=== PATIENT | female | born 1960 | race Caucasian/White ===

== ENCOUNTER 2024-05-19 09:25 | Emergency (ER) | payer MEDICAID, SELFPAY ==
[2024-05-19 09:26] VITALS: BMI 16.9
[2024-05-19 09:45] VITALS: BP 198/93; PULSE 105; RESP 22; TEMP 36.7; O2SAT 92; BMI 16.7
--- NOTE | 2024-05-19 09:54 | XR_ITS ---
Examination: PA lateral chest 2 views TECHNIQUE: Upright PA lateral chest 2 views Exam date and time: May 19, 2024 1006 hours Comparison January 15, 2020 INDICATIONS: Coughing fever beginning today FINDINGS: Significant hyperexpansion Minimal opacity on the lateral view in the lingular segment Normal heart size No pulmonary edema Accentuation bronchovascular markings Chronic osteoporotic wedging mid dorsal vertebral bodies with kyphosis deformity IMPRESSION: COPD with significant hyperexpansion Bronchitis pattern Scarring versus mild pneumonia in the lingular segment, clinical correlation advised
--- NOTE | 2024-05-19 10:04 | PD.EDSOB ---
ED SOB =RME/HPI General Chief Complaint: Shortness of Breath/Dyspnea Stated Complaint: DIFF. BREATHING SINCE LAST NIGHT Time Seen by Provider: 05/19/24 09:34 Source: patient Arrival date/time: 05/19/24 09:25 63-year-old female with a history of COPD, hypothyroidism presents to the emergency room with a chief complaint of difficulty breathing x 2 days Mode of arrival: ambulatory Limitations: no limitations Related Data Home Medications ?Medication ?Instructions ?Recorded ?Confirmed Levothyroxine * (SYNTHROID *) 25 mcg PO QDAY #0 tabs 10/31/14 meloxicam 15 mg tablet (Mobic) 15 mg PO HS #0 tabs 10/31/14 Losartan Potassium * (COZAAR *) 25 mg PO QDAY ##30 08/30/16 Previous Rx's ?Medication ?Instructions ?Recorded motrin 600mg 1 tab PO q6hprn pain #30 tabs 10/31/14 Allergies Allergy/AdvReac Type Severity Reaction Status Date / Time No Known Allergies Allergy Verified 05/19/24 09:28 Review of Systems Review of Systems Systems Reviewed: All systems reviewed, normal except as documented Constitutional Constitutional: Reports system reviewed and no additional complaints, except as documented, Denies fatigue, Denies fever(s), Denies headache(s) and Denies weakness Eyes Eyes: Reports system reviewed and no additional complaints, except as documented, Denies blurry vision and Denies change in vision ENT Ears, Nose, Mouth, and Throat: Reports system reviewed and no additional complaints, except as documented, Denies otalgia, Denies headache(s), Denies nasal congestion, Denies throat swelling and Denies vertigo Cardiovascular Cardiovascular: Reports system reviewed and no additional complaints, except as documented, Denies chest pain, Reports dyspnea and Denies dyspnea on exertion Respiratory Respiratory: Reports system reviewed and no additional complaints, except as documented, Reports chest congestion, Reports cough, Reports dyspnea, Denies dyspnea on exertion and Reports wheezing Gastrointestinal Gastrointestinal: Reports system reviewed and no additional complaints, except as documented, Denies abdominal pain, Denies cramping, Denies nausea and Denies vomiting Genitourinary Genitourinary: Reports system reviewed and no additional complaints, except as documented Musculoskeletal Musculoskeletal: Reports system reviewed and no additional complaints, except as documented and Denies back pain Integumentary/Breasts Skin/Breast: Reports system reviewed and no additional complaints, except as documented and Denies wounds Neurologic Neurologic: Reports system reviewed and no additional complaints, except as documented, Denies confusion, Denies headache(s), Denies lack of coordination, Denies vertigo and Denies weakness Psychiatric Psychiatric: Reports system reviewed and no additional complaints, except as documented, Denies anxiety, Denies confusion, Denies depression, Denies paranoia, Denies suicidal ideation and Denies tactile hallucinations Endocrine Endocrine: Reports system reviewed and no additional complaints, except as documented and Denies fatigue Hematologic/Lymphatic Hematologic/Lymphatic: Reports system reviewed and no additional complaints, except as documented and Denies lymphadenopathy Allergic/Immunologic Allergic/Immunologic: Reports system reviewed and no additional complaints, except as documented, Denies throat swelling, Denies urticaria and Reports wheezing Past Medical History Social History SMOKING STATUS: Current every day smoker ED Exam General Limitations: Present no limitations General appearance: Present alert and in no apparent distress Head Head exam: Present atraumatic Eye Eye exam: Present normal appearance, PERRL and EOMI ENT ENT exam: Present normal exam, normal oropharynx and mucous membranes moist Neck Neck exam: Present normal inspection, full ROM and trachea midline Chest Chest inspection: Present normal inspection and symmetric chest wall rise Respiratory Respiratory exam: Present normal lung sounds bilaterally and wheezes; Absent respiratory distress, accessory muscle use or prolonged expiratory phase Expanded Respiratory Exam Location: Left: wheezes and Lower: wheezes Cardiovascular Cardiovascular exam: Present regular rate, normal rhythm and normal heart sounds Abdominal Exam Abdominal exam: Present soft and normal bowel sounds Extremities Exam Extremities exam: Present normal inspection and full ROM Back Exam Back exam: Present normal inspection and full ROM Neurological Exam Neurological exam: Present alert, oriented X3 and CN II-XII intact Psychiatric Psychiatric exam: Present normal affect and normal mood Skin Skin exam: Present warm, dry, intact and normal color Course Quality Measures none Orders Category Date Time Status Bedside COVID-19 Antigen Test NOW Care 05/19/24 09:54 Active Bedside Influenza A&B Antigen Test NOW Care 05/19/24 09:54 Active XR chest 2V Stat Exams 05/19/24 09:54 Completed Albuterol/Ipratr Rt Eli [Duoneb Rt Eli] Med 05/19/24 09:54 Discontinued 3 ml INH X1 ONE Dexamethasone Inj [Decadron Inj] Med 05/19/24 09:54 Discontinued 10 mg PO X1 ONE Vital Signs Vital signs: Vital Signs Temperature 98.0 F 05/19/24 09:45 Pulse Rate 105 H 05/19/24 09:45 Respiratory Rate 22 H 05/19/24 09:45 Blood Pressure 198/93 H 05/19/24 09:45 Pulse Oximetry (%) 92 L 05/19/24 09:45 Oxygen Delivery Method Room Air 05/19/24 09:45 O2 saturation 92% Shortness of Breath / Dyspnea MDM Narrative MDM Narrative:: 63-year-old female with a history of COPD, hypothyroidism presents to the emergency room with a chief complaint of difficulty breathing x 2 days Patient is hemodynamically stable and in no apparent distress. Patient is not tachypneic not tachycardic afebrile and O2 saturation after breathing treatment went up to 99% on room air Physical examination shows wheezing to the right lower lobes. Steroids and a breathing treatment were given with significant improvement to the patient's symptoms after 1 hour. Patient tested positive for influenza A Patient was discharged and educated to follow-up with primary care provider in the next 24 to 48 hours and return to the emergency room for any evidence of worsening signs or symptoms Patient data External records reviewed:: [facility] previous records Clinical information provided by:: patient Social determinants that could affect healthcare access:: none Patient has the following chronic illnesses:: COPD How is presenting disease/condition affected by chronic disease/condition?: exacerbated by Evaluation data The following diagnostics were reviewed and interpreted by me:: lab results and radiology exam(s) Lab and/or radiology exams considered but not ordered:: Labs and radiology exams considered and ordered Interpretation Summary: Chest [id number]: Significant hyperexpansion Minimal opacity on the lateral view in the lingular segment Normal heart size No pulmonary edema Accentuation bronchovascular markings Chronic osteoporotic wedging mid dorsal vertebral bodies with kyphosis deformity IMPRESSION: COPD with significant hyperexpansion Bronchitis pattern Scarring versus mild pneumonia in the lingular segment, clinical correlation advised Medications / Prescriptions Medications or Prescriptions considered but not ordered:: Medication given Medication administrations:: Medication Administration History Discontinued Medications Albuterol/Ipratropium (Albuterol/Ipratropium (Duoneb) Rt Eli 3 Ml Nebu) 3 ml INH X1 ONE Stop: 05/19/24 09:55 Last Admin: 05/19/24 10:17 Dose: 3 ml Documented By: ISAIAS Dexamethasone Sodium Phosphate (Dexamethasone Sod Phos Inj 10 Mg/Ml Vial) 10 mg PO X1 ONE Stop: 05/19/24 09:55 Last Admin: 05/19/24 10:06 Dose: 10 mg Documented By: MOODY Comments: med given PO Medication given Consultations Consultation(s) initiated? (list below): No Diagnosis Shortness of Breath Differential Diagnosis: acute exacerbation of chronic obstructive airways disease, community acquired pneumonia, asthma with exacerbation and other (Influenza/COVID-19/upper respiratory infection) Most likely diagnosis given after review of the tests above:: Influenza A Admission Indicated Admission indicated?: not indicated Admission Request Was there a request for admission?: No Disposition Plan Disposition Plan: Discharge Discharge Attestation Discharge Attestation: The patient and all family members were given an opportunity to ask questions and understood the discharge instructions. Discharge instructions specifically effects, indications for sooner follow up or return to the emergency department, and the expected course of current diagnosis. Patient condition: Stable Discharge Plan Plan Patient Disposition: HOME (Self Care) Prescriptions/Referrals Prescriptions/Med Rec: No Action meloxicam [Mobic] 15 MG tablet 15 mg PO HS Qty: 0 Levothyroxine * (SYNTHROID *) 25 MCG tablet 25 mcg PO QDAY Qty: 0 motrin 600mg 1 tab PO q6hprn pain Qty: 30 0RF Losartan Potassium * (COZAAR *) 25 MG tablet 25 mg PO QDAY Qty: 30 Referrals: No Primary/Family,Physician [Primary Care Provider] - In 1 week Problem List Clinical Impression: Influenza A Patient/Caregiver Discharge Instructions Education Materials: ED Influenza (Adult) Additional Instructions: Please follow-up with your primary care provider in the next 24 to 48 hours. You tested positive for influenza. The treatment for this is symptom management. Please continue to take Tylenol and ibuprofen for fever management. Please increase your oral fluid intake. For any evidence of worsening signs or symptoms please return to the emergency room immediately Print Language: Croatian Stand Alone Forms: Crystal Award Info., Patient Portal Info Letter PA/GAMAL Supervising Physician PA/STATE DIRECTOR Supervising Physician: Dr. Reinoso
[2024-05-19] MEDS: DEXAMETHASONE SOD PHOS INJ 10 MG/ML VIAL PO (10:06)
[2024-05-19] MEDS: ALBUTEROL/IPRATROPIUM (Duoneb) RT SOL 3 ML NEBU INH (10:17)
[2024-05-19 10:18] VITALS: PULSE 91; RESP 18; O2SAT 99
== END 2024-05-19 10:56 | disposition home or self-care (01) ==
PROVIDERS: Emergency Provider Emergency Medicine
DX: J10.1 Influenza due to other identified influenza virus with other respiratory manifestations (principal)
CPT/HCPCS: 71046; 87400; 87811; 94640; 99283; A9270; J1100